=== PATIENT | male | born 1955 | race Caucasian/White ===

== ENCOUNTER 2019-09-20 15:54 | Emergency (ER) | payer BC, OTHER | END 2019-09-20 18:34 | disposition home or self-care (01) | LOC: ERS 15:54 | DX: B34.9 Viral infection, unspecified (principal) | CPT/HCPCS: 87081; 87430; 87804; 99283; U0001 ==

== ENCOUNTER 2024-07-14 07:54 | Day surgery (SDC) | payer BC, MEDICARE ==
[2024-07-10 16:18] VITALS: BMI 27.6
[~2024-07-14 07:54] MED LIST: EPINEPHrine 0.3 MG in Ophthalmic Irrigation Solution 500 ML IRR SCH
[2024-07-14] MEDS ORDERED: PHENYLephrine 2.5% Ophth Soln 15 ml Bottle ONE (08:45)
[2024-07-14] MEDS ORDERED: Cyclopentolate 1% Opth Drop 2 ML BOT ONE (08:45)
[2024-07-14] MEDS ORDERED: PROPOFOL 20 ML ONE (09:35)
[2024-07-14] MEDS ORDERED: fentaNYL 50 mcg/mL 1 mL Vial ONE (09:35)
[2024-07-14] MEDS ORDERED: Indocyanine Green 25 MG/10 ML VIAL ONE (09:53)
[2024-07-14] MEDS ORDERED: CEFAZOLIN 1 GM VIAL ONE (09:53)
[2024-07-14] MEDS ORDERED: Maxitrol 0.1% Opth Oint 3.5 GM TUBE ONE (09:53)
[2024-07-14] MEDS ORDERED: Lidocaine 4% PF 5 ML AMP ONE (09:53)
[2024-07-14] MEDS ORDERED: Triamcinolone 40 MG/ML VIAL ONE (09:53)
[2024-07-14] MEDS ORDERED: Bupivacaine 0.75% 10 ML VIAL ONE (09:53)
[2024-07-14] MEDS ORDERED: Lidocaine 1% PF 5 ML VIAL ONE (09:53)
== END 2024-07-14 11:20 | disposition home or self-care (01) ==
LOC: SDC 07:54
PROVIDERS: ATTEND Ophthalmology Retina Specialist
PROC: 08T53ZZ Resection of Left Vitreous, Percutaneous Approach (ICD-10-PCS; principal; 2024-07-14)
DX: H35.372 Puckering of macula, left eye (principal)
CPT/HCPCS: 67041; J0171; J0690; J2704; J3010; J3301; J3490